=== PATIENT | male | born 1950 | race Caucasian/White ===

== ENCOUNTER → 2019-02-20 | Outpatient (CLI) | payer MEDICARE, OTHER ==
--- NOTE | 2019-02-20 11:55 | RADIOLOGY REPORT (SQ) ---
EXAM DESCRIPTION: MRI LUMBAR SPINE WITHOUT COMPLETED DATE/TIME: 02/20/2019 10:08 am REASON FOR STUDY: LOW BACK PAIN M54.5 LOW BACK PAIN COMPARISON: None. TECHNIQUE: Sagittal and Axial imaging includes T1, T2, STIR and gradient echo sequences. Coronal T2/ HASTE imaging. LIMITATIONS: None. FINDINGS: VISUALIZED UPPER ABDOMEN: Limited evaluation. No acute or suspicious findings suggested. SEGMENTATION: No transitional anatomy. The lowest well-developed disc space is labeled L5-S1. ALIGNMENT: Minimal grade 1 anterolisthesis of L4 over L5. Minimal retrolisthesis of L2 over L3. VERTEBRAE: Intact. BONE MARROW: Fatty marrow vertebral body reactive endplate changes at L1-2 and L2-3 DISC SIGNAL: Diffuse decreased T2 weighted intervertebral disc signal. Disc space loss of height at L5-S1 POSTERIOR ELEMENTS: Generally intact. No pars defect evident. HARDWARE: None in the spine. CORD AND CONUS: Normal in size and signal intensity. Conus at the T12-L1 level. SOFT TISSUES: No aortic aneurysm seen. No bulky retroperitoneal adenopathy or mass. No paraspinal mas s or fluid. T10-11: At the upper edge of the field of view. No central or foraminal stenosis. T11-12: Broad diffuse disc bulge and bulky bilateral facet hypertrophy cause borderline central fernando l narrowing and mild bilateral foraminal narrowing. T12-L1: Minimal posterior disc bulging is present with mild bilateral facet and ligament hypertrophy . Borderline central canal narrowing. Mild bilateral foraminal narrowing without exit nerve root im pingement. L1-L2: Broad diffuse posterior disc bulge and bony spurring, mild bilateral facet and ligament hypert rophy, minimal retrolisthesis of L2 over L3 causes borderline central canal narrowing. There is mode rate bilateral foraminal narrowing with partial effacement of the fat around the exiting right L2 ner ve root. L2-L3: Broad diffuse posterior disc bulge and moderate bilateral facet and ligament hypertrophy cause s mild to moderate central canal stenosis. There is effacement of the CSF around the lumbar nerve ro ots and flattening of the thecal sac into a triangular shape, best shown on axial T2 image 12. There is moderate bilateral L2-3 foraminal narrowing without definite exiting L2 nerve root impingement. L3-L4: Broad diffuse posterior disc bulge and moderate bilateral facet and ligament hypertrophy cause [id number] central canal narrowing. There is flattening of the thecal sac into a triangular s hape and partial effacement of the CSF around the lumbar nerve roots on axial T2 image 18. Elsewhere at L3-4, moderate bilateral foraminal narrowing is present without exiting L3 nerve root impingement . L4-L5: Severe central canal stenosis results from broad diffuse posterior disc bulge, grade 1 anterol isthesis of L4 over L5, and very bulky bilateral facet hypertrophy. Effacement of CSF around the lum bar nerve roots on axial image 25 and sagittal image 8. There is mild right and moderate left L4-5 f oraminal narrowing. Partial effacement of the fat around the left exiting L4 nerve root. Both facet joints exhibit bony overgrowth with bony spurring. Small synovial cysts protrude off the inferior a spect of the bilateral facet joints. L5-S1: Broad diffuse posterior disc bulge and bony spurring and mild facet hypertrophy are present. No central stenosis. Mild right and [id number] left foraminal narrowing is present without exi ting L5 nerve root impingement. SACRUM: Visualized upper sacrum intact. OTHER: No other significant findings. IMPRESSION: Severe central canal stenosis at L4-5. TECHNICAL DOCUMENTATION: JOB ID: [id number] [employer]- All Rights Reserved Reading location - IP/workstation name: [email or web address]
== END ==
LOC: RAD 09:32
PROVIDERS: ATTEND Physician Assistant
DX: M54.5 Low back pain (principal); M48.061 Spinal stenosis, lumbar region without neurogenic claudication
CPT/HCPCS: 72148